=== PATIENT | female | born 1975 | race Caucasian/White ===

== ENCOUNTER 2019-01-26 09:05 | Day surgery (SDC) | payer OTHER ==
[~2019-01-26] VITALS: Ht 160 cm; Wt 100.0 kg
[~2019-01-26 09:05] MED LIST: ALPR-475 PO; CHOL40002 PO; CINN500C2 PO; Calcium PO; DULO30CA2 PO; FERR160T4 PO; GLUC500T11 PO; INUL1TAB4 PO; LACT1CAP35 PO; MAGN400T7 PO; MULT-642 PO; PHEN15CA2 PO; PLAN450T PO; UBID100C41 PO; VITA1TAB19 PO
[2019-01-26] MEDS ORDERED: MIDAZOLAM 1 MG/ML, 2ML ONE (09:18)
[2019-01-26] MEDS ORDERED: FENTANYL PF 100 MCG/2ML ONE (09:18)
[2019-01-26] MEDS ORDERED: LACTATED RINGERS 1,000 ML IV SCH (09:18)
[2019-01-26 09:21] VITALS: BP 116/79
[2019-01-26 09:36] LABS: HCG UR SG 1.023 (1.003-1.030)
[2019-01-26] MEDS ORDERED: LIDOCAINE 1%-EPI 1:100K, 30ML ONE (10:35)
[2019-01-26] MEDS ORDERED: BUPIVACAINE/PF 0.25% ONE (10:35)
[2019-01-26] MEDS ORDERED: methylPREDNISolone *ACETATE* 40 MG/ML ONE (10:35)
[2019-01-26] MEDS ORDERED: BUPIVACAINE/PF-EPI 0.5% 1:200K ONE (10:35)
[2019-01-26] MEDS ORDERED: BUPIVACAINE 0.25% ONE (10:37)
[2019-01-26] MEDS ORDERED: methylPREDNISolone*ACETATE* 80 MG/ML ONE (10:38)
[2019-01-26] MEDS ORDERED: DEXAMETHASONE 4 MG/ML, 5ML ONE (10:56)
[2019-01-26] MEDS ORDERED: SUCCINYLCHOLINE 20 MG/ML, 10ML ONE (10:56)
[2019-01-26] MEDS ORDERED: ROCURONIUM 10 MG/ML,10ML ONE (10:56)
[2019-01-26] MEDS ORDERED: LIDOCAINE 2%, 6 ML JEL.PF.APP MM ONE (11:18)
[2019-01-26] MEDS ORDERED: ACETAMINOPHEN 325 MG TABLET PO PRN (11:30)
[2019-01-26] MEDS ORDERED: MIDAZOLAM 1 MG/ML, 2ML IV PRN (11:30)
[2019-01-26] MEDS ORDERED: FENTANYL PF 100 MCG/2ML IV PRN (11:30)
[2019-01-26] MEDS ORDERED: METOPROLOL 1 MG/ML, 5ML IV PRN (11:30)
[2019-01-26] MEDS ORDERED: hydrALAzine 20 MG/ML, 1ML IV PRN (11:30)
[2019-01-26] MEDS ORDERED: PROMETHAZINE 25 MG/ML, 1ML IV PRN (11:30)
[2019-01-26] MEDS ORDERED: MEPERIDINE/PF 25MG/0.5ML IVPush PRN (11:30)
[2019-01-26] MEDS ORDERED: HYDROmorphone 2 MG/ML, 1ML IVPush PRN (11:30)
[2019-01-26] MEDS ORDERED: OXYcodone 5 MG/5 ML ORAL.SOL UDC PO PRN (11:30)
[2019-01-26] MEDS ORDERED: SCOPOLAMINE PATCH, 1.5MG PATCH.TD72 TD PRN (11:30)
[2019-01-26] MEDS ORDERED: ALBUTEROL/IPRATROPIUM 2.5MG/0.5MG, 3 ML NPPB PRN (11:30)
[2019-01-26] MEDS ORDERED: ONDANSETRON 2MG/ML, 2ML IV PRN (11:30)
[2019-01-26] MEDS ORDERED: CEFAZOLIN 1,000 MG ONE (11:40)
[2019-01-26] MEDS ORDERED: PROPOFOL 10 MG/ML, 20ML ONE (11:40)
[2019-01-26] MEDS ORDERED: ONDANSETRON 2MG/ML, 2ML ONE (11:40)
[2019-01-26] MEDS ORDERED: LIDOCAINE-MPF 2% ,5ML ONE (11:40)
[2019-01-26] MEDS ORDERED: BUPIVACAINE/PF 0.5% ONE (11:40)
[2019-01-27] MEDS ORDERED: DULOXETINE 30 MG CAPSULE.DR PO SCH (09:00)
== END 2019-01-26 15:00 | disposition home or self-care (01) ==
LOC: OUT 09:05
PROVIDERS: ATTEND Orthopaedic Surgery
DX: S43.432A Superior glenoid labrum lesion of left shoulder, initial encounter (principal); M75.112 Incomplete rotator cuff tear or rupture of left shoulder, not specified as traumatic; M75.42 Impingement syndrome of left shoulder; M19.012 Primary osteoarthritis, left shoulder; M65.812 Other synovitis and tenosynovitis, left shoulder; M25.312 Other instability, left shoulder; M19.011 Primary osteoarthritis, right shoulder; I25.10 Atherosclerotic heart disease of native coronary artery without angina pectoris; X58.XXXA Exposure to other specified factors, initial encounter; Y93.89 Activity, other specified; Y92.89 Other specified places as the place of occurrence of the external cause; Y99.8 Other external cause status
CPT/HCPCS: 20610; 29823; 29824; 29826; 29827; 29828; 64415; 81025; C1713; J0330; J0690; J1040; J1100; J2250; J2405; J2704; J3010; J3490; J7120; J1030